=== PATIENT | female | born 1945 | race Caucasian/White ===

== ENCOUNTER 2016-12-02 11:53 | Emergency (ER) | payer MEDICARE, OTHER ==
[2014-03-17 12:00] VITALS: BMI 31.1
[~2016-12-02 11:53] MED LIST: ACETAMINOPHEN325 MG PO; BAYER CHEWABLE81 MG PO; EFFEXOR XR150 MG PO; K-DUR20 MEQ PO; LASIX40 MG PO; LINZESS290 MCG PO; MERIBIN5 MG PO; NEURONTIN600 MG PO; PRAVASTATIN SOD10 MG PO; PRILOSEC20 MG PO; UNITHROID75 MCG PO; VITAMIN D250000 UNIT PO; XANAX1 MG PO; ZANAFLEX4 MG PO; [UNRECOGNIZED DRUG - OTHER]
== END 2016-12-02 17:36 | disposition home or self-care (01) ==
LOC: D.ER 11:53
DX: S00.03XA Contusion of scalp, initial encounter (principal); W19.XXXA Unspecified fall, initial encounter; Y93.89 Activity, other specified; Y92.89 Other specified places as the place of occurrence of the external cause; M54.5 Low back pain; Z86.73 Personal history of transient ischemic attack (TIA), and cerebral infarction without residual deficits; K21.9 Gastro-esophageal reflux disease without esophagitis; I10 Essential (primary) hypertension; E03.9 Hypothyroidism, unspecified

== ENCOUNTER 2019-02-14 12:37 | Emergency (ER) | payer MEDICARE, OTHER ==
[~2019-02-14] VITALS: Ht 157.5 cm; Wt 68.2 kg
[2019-02-14 12:38] VITALS: Ht 157.5 cm; Wt 68.2 kg
[2019-02-14] MEDS ORDERED: FENTANYL PUMP (12:43)
[2019-02-14] MEDS ORDERED: ASPIRIN325 MG PO (12:43)
[2019-02-14 13:17] LABS: BASOPHILS 0.1 % (0-2); EOSINOPHILS 1.1 % (0-7); HEMATOCRIT 38.2 % (36.0-48.0); HEMOGLOBIN 12.7 g/dL (12-16); IMMATURE GRANULOCYTES 0.1 % (0-5); LYMPHOCYTES 20.7 % (15-50); MCH 29.7 pg (26.0-34.0); MCHC 33.2 g/dL (31.0-37.0); MCV 89.3 fL (80.0-100.0); MEAN PLATELET VOLUME 9.7 fL (7.4-10.4); MONOCYTES 12.2 % (2-11); NEUTROPHILS 65.8 % (40-80); PLATELET COUNT 266 10x3/uL (130-400); RBC 4.28 10x6/uL (4.00-5.40); WBC 7.1 10x3/uL (4.8-10.8)
[2019-02-14 13:45] LABS: APTT 30.6 SECONDS (22.8-39.4); INR 0.97 (0.85-1.17); PROTIME 12.4 SECONDS (11.6-15.0)
[2019-02-14 14:09] LABS: ALBUMIN 3.7 g/dL (3.4-5.0); ALKALINE PHOSPHATASE 131 U/L (46-116); ALT (SGPT) 22 U/L (10-68); BILIRUBIN - TOTAL 0.54 mg/dL (0.2-1.3); CALC OSMOLALITY 272 mosm/kg (275-300); CALCIUM 8.5 mg/dL (8.5-10.1); CARBON DIOXIDE 25.8 mmol/L (21.0-32.0); CHLORIDE - SERUM 101 mmol/L (98-107); GLUCOSE 102 mg/dL (74-106); POTASSIUM - SERUM 4.1 mmol/L (3.5-5.1); PROTEIN - SERUM 7.9 g/dL (6.4-8.2); SODIUM 137 mmol/L (136-145); UREA NITROGEN 11 mg/dL (7-18); eGFR NON AFRICAN AMERICAN 58 mL/min (90-120)
[2019-02-14 14:20] LABS: CKMB 0.6 U/L (0.0-3.6); CREATINE KINASE 85 UL (21-215); MAGNESIUM - SERUM 2.5 mg/dL (1.8-2.4)
[2019-02-14 14:29] LABS: TROPONIN-I < 0.017 ng/mL (0.000-0.060)
[2019-02-14] MEDS ORDERED: PHENERGAN25 MG RC (15:47)
[2019-02-14] MEDS ORDERED: LOMOTIL 2.5-0.1 EAC1 PO (15:47)
[2019-02-14 16:40] VITALS: BP 163/95
== END 2019-02-14 16:40 | disposition home or self-care (01) ==
LOC: D.ER 12:37
PROVIDERS: Emergency Medicine
DX: B34.9 Viral infection, unspecified (principal)